=== PATIENT | male | born 1955 | race Caucasian/White ===

== ENCOUNTER → 2020-12-15 | Outpatient (CLI) | payer MEDICARE ==
--- NOTE | 2020-12-15 15:14 | XR ---
EXAMINATION TYPE: XR Hip Bilateral Complete DATE OF EXAM: 12/15/2020 COMPARISON: NONE HISTORY: 65 year-old male right and left hip pain TECHNIQUE: 2 views each side FINDINGS: There is moderate degenerative change of both hips with prominent marginal spurring and mild axial kenneth int space narrowing and subchondral sclerosis. IMPRESSION: Moderate bilateral hip OA. No acute abnormality seen.
== END ==
LOC: RADXRMAIN 14:30
PROVIDERS: ATTEND Internal Medicine
DX: M16.0 Bilateral primary osteoarthritis of hip (principal)
CPT/HCPCS: 73521

== ENCOUNTER → 2021-07-27 | Outpatient (CLI) | payer MEDICARE ==
--- NOTE | 2021-07-27 14:16 | XR ---
EXAMINATION TYPE: XR shoulder complete 3 views LT DATE OF EXAM: 07/27/2021 Comparison: None Clinical History: 65-year-old male Shoulder Pain Findings: Subacromial space is preserved. Mild degenerative joint space narrowing and humeral joint. No acute f racture, subluxation, dislocation seen. Impression: Suspect mild degenerative change within the glenohumeral joint given the appearance of mild joint spa ce narrowing on the Grashey view. No acute osseous abnormality seen.
== END | disposition home or self-care (01) ==
LOC: RADXRMAIN 13:48
PROVIDERS: ATTEND Internal Medicine
DX: M25.512 Pain in left shoulder (principal)

== ENCOUNTER → 2024-09-23 | Outpatient (CLI) | payer MEDICARE ==
--- NOTE | 2024-09-23 14:33 | US ---
EXAMINATION TYPE: US arterial LE single level DATE OF EXAM: 09/23/2024 2:14 PM COMPARISONS: None. CLINICAL INDICATION: Male, 69 years old with history of I77.9 DISORDER OF ARTERIES AND ARTERIOLES, UN SPECI; TECHNIQUE: Systolic pressures were taken of the upper and lower extremity arteries with ankle-brachia l indices and toe brachial indices calculated bilaterally. History of: Smoker: No Hypertension: No Diabetic: No Hyperlipidemia: Yes TIA/CVA: No Previous Vascular Surgery: No CAD: No AL: No Vascular Ulcers: No Claudication: Yes Gangrene: No FINDINGS: Doppler Waveforms: Right: Multiphasic Left: Multiphasic Brachial Artery systolic pressure: Right: 143 Left: 132 Posterior Tibial artery systolic pressure: Right: 188 Left: 182 Dorsalis Pedis artery systolic pressure: Right: 176 Left: 161 Ankle-Brachial Indices: Right: 1.3 Left: 1.3 (Vessel hardening > 1.4; Normal 0.9 - 1.4, Moderate 0.7 - 0.9, Severe 0.5-0.7) IMPRESSION: Normal ankle-brachial brachial indices bilaterally. [facility], , 09/23/2024 2:30 PM
== END | disposition home or self-care (01) ==
LOC: RADUSWWP 13:20
PROVIDERS: ATTEND Internal Medicine
DX: I77.9 Disorder of arteries and arterioles, unspecified (principal); E78.5 Hyperlipidemia, unspecified
CPT/HCPCS: 93922